=== PATIENT | female | born 1980 | race Caucasian/White ===

== ENCOUNTER → 2021-09-03 13:02 | Outpatient (CLI) | payer BC, SELFPAY ==
--- NOTE | ~2021-09-03 | US_ITS ---
EXAMINATION: US pelvic complete w TV DATE: 09/03/2021 14:10 INDICATION: Abnormal uterine bleeding Comparison:No prior studies for comparison. TECHNIQUE: Multiple transabdominal and endovaginal sonographic images of the pelvis performed. FINDINGS: The uterus measures 11.2 x 5.3 x 6.2 cm. There is an IUD in the endometrium. The endometria l complex measures 7 mm. The right ovary measures 2.5 x 1.5 x 1.8 cm and the left ovary measures 3 x 1.7 x 2.9 cm. There are small follicles in each ovary. Normal doppler signal in both ovaries. There is no free fluid in the pelvis. There are no abnormal masses seen on either side. IMPRESSION: 1. Mildly enlarged uterus. IUD in expected position in the endometrium. Reviewed, dictated and finalized at location A.
== END ==
PROVIDERS: PCP Obstetrics & Gynecology; Visit Provider Obstetrics & Gynecology
DX: N93.9 Abnormal uterine and vaginal bleeding, unspecified (principal); Z97.5 Presence of (intrauterine) contraceptive device; N85.2 Hypertrophy of uterus
CPT/HCPCS: 76830; 76856

== ENCOUNTER 2021-09-22 10:09 | Emergency (ER) | payer BC, SELFPAY ==
[2021-09-22] VITALS (9 sets, daily range): BP systolic 112–150; BP diastolic 63–100; PULSE 78–91; RESP 14–20; TEMP 37.1; O2SAT 95–100
[2021-09-22 10:25] LABS: Basophils Percent Auto 0.5 % (0.2-1.2); Eosinophils Absolute Auto 0.1 K/mm3 (0-0.3); Eosinophils Percent Auto 1.8 % (0-4.4); Hematocrit 35.8 % (37.0-47.0); Hemoglobin 12.4 g/dL (12.0-15.0); Immature Granulocyte Absolute 0.02 K/mm3 (0.00-0.031); Immature Granulocyte Percent A 0.3 % (0-0.5); Lymphocytes Absolute Auto 1.79 K/mm3 (0.9-3.2); Lymphocytes Percent Auto 24.4 % (18.3-44.2); Mean Corpuscular HGB Conc 34.6 g/dl (32-36); Mean Corpuscular Hemoglobin 34.3 pg (26-34); Mean Corpuscular Volume 99.2 fl (80-100); Mean Platelet Volume 9.5 fl (7.4-10.4); Monocytes Absolute Auto 0.5 K/mm3 (0.1-0.6); Monocytes Percent Auto 6.4 % (2.6-8.5); Neutrophils Absolute Auto 4.9 K/mm3 (1.3-6.7); Neutrophils Percent Auto 66.6 % (45.5-73.1); Platelet Count Result 224 k/mm3 (150-375); Red Blood Count 3.61 M/mm3 (4.2-5.4); Red Cell Distribution Width 11.5 % (11.5-14.5); White Blood Count 7.3 K/mm3 (4.5-10.0)
[2021-09-22 10:50] LABS: Beta HCG Quantitative < 2.39 mIU/ML
--- NOTE | 2021-09-22 12:42 | PC.NURSE ---
Pad that pt was given on arrival to room saturated.
[2021-09-22] MEDS: KETOROLAC 15 MG/ML VIAL (*BKC) IV PUSH (13:28)
[2021-09-22] MEDS: MORPHINE SULFATE (*CRX) 2 MG/ML INJ 1 MG IV PUSH (13:28)
[2021-09-22] MEDS: TRANEXAMIC ACID 1,000MG/ISO100 1,000 MG/100 ML BAG 200 MG IVPB (13:35)
--- NOTE | 2021-09-22 14:27 | PC.NURSE ---
Chux pad under pt being changed approx every 30 min. Losing grape sized clots.
--- NOTE | 2021-09-22 15:20 | ED.FEMALEGU ---
HPI - Female Genitourinary General Chief complaint: Vaginal Bleeding Stated complaint: Vaginal bleeding Time Seen by Provider: 09/22/21 11:13 Source: patient Mode of arrival: ambulatory Limitations: no limitations History of Present Illness HPI Narrative: 41-year-old female presents today with complaints of 4 days of vaginal bleeding. Patient with history of this issue and recently saw OB. Patient currently on Provera per her OB provider for this bleeding issue. Patient was told a few days ago to come into the ER. Patient states she is saturating a super tampon sometimes every 20 minutes. Patient really recently with an ultrasound showing Mirena in place and enlarged uterus. Patient has planned to have a hysterectomy in October. Related Data Home Medications Medication Instructions Recorded Confirmed levonorgestrel 20 mcg/24 hours (7 1 device intrauterine ONCE 08/29/21 09/04/21 yrs) 52 mg intrauterine device (Mirena) Allergies Allergy/AdvReac Type Severity Reaction Status Date / Time No Known Allergies Allergy Verified 09/22/21 12:25 Review of Systems Review of Systems: CONSTITUTIONAL: Denies fever, chills, or sweats. EYES: Denies visual changes, redness, or discharge. ENT: Denies rhinorrhea, congestion, sore throat, or otalgia. CARDIOVASCULAR: Denies chest pain, palpitations, or edema. RESPIRATORY: Denies cough or dyspnea. GASTROINTESTINAL: Denies abdominal pain, nausea, vomiting, or diarrhea. GENITOURINARY: Vaginal bleeding with pelvic cramping. Denies dysuria or hematuria. SKIN: Denies rash or itching. MUSCULOSKELETAL: Denies back pain, joint pain, or myalgia. NEUROLOGIC: Denies headache, numbness, dizziness, or weakness. PSYCHIATRIC: Denies anxiety or depression. [facility] Past Medical History Medical History Anxiety Dermoid cyst (~2017) Encounter for IUD insertion (12/08/20) Mirena insertion Gestational trophoblastic disease (~2005) History of chemotherapy (~2005) History of molar resulted in GTD History of PCOS Missed with demise before 20 completed weeks of gestation Surgical History Surgical History History of bladder suspension procedure History of cholecystectomy History of dilation and curettage (10/02/20) History of laparotomy (~1999) pcos/endometriosis History of ovarian cystectomy (~2017) dermoid cyst Family History Family History Mother Breast cancer Asthma Father Hypertension Chronic obstructive lung disease Heart disease Social History Social History Smoking status: Never smoker Alcohol intake: current Drinks per week: 3 Substance use: never Substance use type: does not use Additional living arrangements comments: 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 Gender identity (if verbalized by the patient): Female Sexual Orientation (if Verbalized by the Patient): Straight or Heterosexual Exam Const: General: healthy appearing, no acute distress and alert Nutritional Appearance: well nourished Orientation/consciousness: patient oriented x3 Limitations: no limitations HENMT: Head: normal to inspection Mouth: Yes Normal oral and palatal mucosa present Eyes: Conjunctivae: conjunctivae normal Pupils: Equal, round and reactive pupils present EOM: EOMs intact bilaterally Neck: Neck: normal visual inspection Chest: Chest palpation & inspection: normal inspection of the chest Resp: Effort & Inspection: normal respiratory effort Auscultation: clear to auscultation bilaterally Cardio: Rate: regular rate Rhythm: regular rhythm GI: GI Palp: Yes Soft to palpation and Yes Tenderness to palpation present (GI) Auscultation: normal bowel sounds : Speculum Exam - Vagina: normal appearance of the
[2021-09-22] MEDS: SODIUM CHLORIDE 0.9% IV 1,000 ML 999 ML IV CONT (15:37)
[2021-09-22 15:53] LABS: Hematocrit 32.3 % (37.0-47.0); Hemoglobin 11.1 g/dL (12.0-15.0)
--- NOTE | 2021-09-22 16:17 | PC.NURSE ---
c/o feeling lightheaded when up to the bathroom. also c/o increase in pain. vaginal bleeding decreased after medications.
[2021-09-22] MEDS: oxyCODONE/ACETAMINOPHEN (*CRX) 5-325 MG TABLET 1 TABLET PO (16:28)
== END 2021-09-22 18:07 | disposition home or self-care (01) ==
PROVIDERS: Emergency Medicine; Emergency Provider Nurse Practitioner Family; PCP Obstetrics & Gynecology
DX: N93.9 Abnormal uterine and vaginal bleeding, unspecified (principal); E28.2 Polycystic ovarian syndrome; Z92.21 Personal history of antineoplastic chemotherapy; F41.9 Anxiety disorder, unspecified; Z97.5 Presence of (intrauterine) contraceptive device
CPT/HCPCS: 36415; 84702; 85014; 85018; 85025; 85461; 96361; 96365; 96375; 99284; A9270; J1885; J2270; J7030

== ENCOUNTER 2021-09-28 12:52 | Outpatient (CLI) | payer BC, SELFPAY | END 2021-09-28 12:53 | disposition home or self-care (01) | LOC: ANHSURGERY 12:56 | PROVIDERS: Visit Provider Obstetrics & Gynecology | DX: N92.1 Excessive and frequent menstruation with irregular cycle (principal); Z01.818 Encounter for other preprocedural examination | CPT/HCPCS: 36415; 86850; 86900; 86901 ==

== ENCOUNTER 2021-10-05 04:10 | Day surgery (SDC) | payer BC, SELFPAY ==
[2021-09-27 10:16] VITALS: BMI 37.3
--- NOTE | 2021-09-27 10:31 | PC.NURSE ---
Report to the Outpatient Waiting Room, entrance under the green pavilion located off [facility], at time 7:00 on date 10/05/21. OR Time: 9:00. - You and your visitor will be asked a series of questions to screen for COVID 19 for your protection. - Only one visitor is allowed at this time. - The patient visitor is requested to leave or wait in car when not with patient. - A mask is required within the hospital. Patients may have clear liquids (water, carbonated beverages, clear teas, apple juice) until 3 hours prior to surgery (6:00) with a maximum of 20 ounces. - No food from midnight until time of surgery Take the following medications with a SIP of water the morning of surgery: ESCITALOPRAM, PAIN PILL (IF NEEDED) Medications to discontinue per physician: PROVERA AND TRANEXAMIC ACID Date to take last dose: 09/27/[address] DEWITT (PER PT) Please no make-up, nail kinyarwanda, hairspray, perfume, deodorant, or body powder the day of surgery. No jewelry (including any body piercings) or valuables the day of surgery, leave them at home. Please take a shower or bath the night before, or the morning of, surgery with an antibacterial soap. Wear comfortable, loose fitting clothing. - Jewelry must be removed prior to entering the operating room. Rings and piercings that are not removed may be cut off. - The hospital will not accept responsibility for valuables. - Please leave all valuables, including medications, at home the day of surgery. If you are going home after surgery, a licensed river driver must drive you home. - NO public transportation without another adult. - We recommend that an adult stay with you for 24 hours following discharge. - We also recommend that you do not drive, make important decision, drink alcoholic beverages, or take any drugs that were not prescribed by your health care provider for at least 24 hours after your discharge time. Follow any additional instructions given to you from your surgeon. If you or anyone in your household have experienced Covid symptoms in the past week, please notify your surgeon or the nurse liaison at the phone number below for possible testing. Telephone instructions given to PT - AVI CASTELLANOS and asked if any additional questions and then verbalized understanding. Patient advised to call surgeon office or pre surgery nurse liaison [phone] if any additional questions.
[2021-10-05] VITALS (13 sets, daily range): BP systolic 104–120; BP diastolic 55–91; PULSE 62–92; RESP 12–20; TEMP 36.9–37.2; O2SAT 92–100
--- NOTE | 2021-10-05 07:13 | WPDANESEPPF ---
Anes - Initial Pre Proc Eval Procedure: Operation Date: 10/05/21 09:00 Proposed Procedures p Robotic Assisted Laparoscopic Hysterectomy with Bilateral Salpingectomy, - Rosy Nguyen MD s Cystoscopy - Rosy Nguyen MD Date/Time: 10/05/21 07:13 Surgeon: Rosy Nguyen MD Pre Op Diagnosis: uterine hypertrophy Patient Data Age: 41 Gender: F Height: 1.57 m Weight: 92.53 kg Allergies Allergy/AdvReac Type Severity Reaction Status Date / Time No Known Allergies Allergy Verified 10/05/21 07:16 Home Medications Medication Instructions Recorded Confirmed Type levonorgestrel 20 mcg/24 hours (7 1 device intrauterine ONCE 08/29/21 09/27/21 History yrs) 52 mg intrauterine device (Mirena) oxycodone-acetaminophen 5 mg-325 1 tablet PO Q6H PRN pain #12 tabs 09/22/21 10/05/21 Rx mg tablet escitalopram oxalate 20 mg tablet 20 mg PO HS 10/05/21 10/05/21 History Patient hx anesthesia problems: post op nausea/vomiting Family hx anesthesia problems: none Results Review: All pre-operative results and documents have been reviewed as part of the pre-operative evaluation. [facility] Past Medical History Medical History (Updated 10/05/21 @ 07:13 by Nahid Staley DO) Anxiety Asthma undiagnosed Dermoid cyst (~2017) Encounter for IUD insertion (12/08/20) Mirena insertion Gestational trophoblastic disease (~2005) History of chemotherapy (~2005) History of molar resulted in GTD History of PCOS Missed with demise before 20 completed weeks of gestation Surgical History Surgical History History of bladder suspension procedure History of cholecystectomy History of dilation and curettage (10/02/20) History of laparotomy (~1999) pcos/endometriosis History of ovarian cystectomy (~2017) dermoid cyst Family History Family History Mother Breast cancer Asthma Father Hypertension Chronic obstructive lung disease Heart disease Social History Social History Smoking status: Never smoker Alcohol intake: current Drinks per week: 2 Substance use: current Substance use type: marijuana Living arrangements: with family Additional living arrangements comments: CHILDREN 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 Gender identity (if verbalized by the patient): Female Sexual Orientation (if Verbalized by the Patient): Straight or Heterosexual Spiritual care concerns: No Anes - Eval Final PreProcedure Day of Procedure 10/05/21 07:13 Patient weight: obese Heart: regular rate and rhythm Lungs: clear to auscultation Airway: Mallampati scale class II Neurological: alert and oriented Last oral intake: >/= 8 hours ASA classification: II Emergent: no Anesthetic plan: proceed Anesthesia type and monitoring: general ETT and standard monitoring Results Review: All pre-operative results and documents have been reviewed as part of the pre-operative evaluation. Informed Consent: The patient's anesthetic plan and its attendant risks and benefits were discussed with the patient/family/POA. Questions were solicited and answers provided to the satisfaction of the patient/family/POA.
[2021-10-05] MEDS: LACTATED RINGERS 1,000 ML 30 ML IV CONT (07:36)
[2021-10-05] MEDS: ACETAMINOPHEN 500 MG TABLET 1000 MG PO ×2 (07:36→20:55)
[2021-10-05] MEDS: KETOROLAC 15 MG/ML VIAL (*BKC) IV PUSH (07:39)
[2021-10-05] MEDS: SCOPOLAMINE 1.5 MG PATCH TRANSDERM (07:39)
--- NOTE | 2021-10-05 08:24 | PM.IMHP ---
H&P: HPI History of Present Illness Date/Time: 10/05/21 08:24 Chief Complaint: abnormal uterine bleeding Narrative: Ian is a 41yo [id number] who presents with AUB and to proceed with scheduled hysterectomy. She has significant AUB and was recently seen in the ER. She reports having significant bleeding; clots the size of golf balls and passed 3 about the size of her palm. She has been taking the Provera but unsure if it's helping much. She went to the ER where heavy bleeding was noted. CBC was normal. But due to the heavy bleeding, TXA was given. She has a mirena IUD in place since 12/08/20, on her last clinic visit though, no strings were noted and concerning for IUD expulsion. She reports that she has none stop bleeding. 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 She reports she has been having significant cramping and back pains with the bleeding. She is not currently sexually active. She would liek to proceed with hysterectomy. No symptoms of anemia. Review of Systems Review of Systems: All systems reviewed & are unremarkable except as noted in HPI and below (HPI) PMFSH Past Medical History Medical History Anxiety Asthma undiagnosed Dermoid cyst (~2017) Encounter for IUD insertion (12/08/20) Mirena insertion Gestational trophoblastic disease (~2005) History of chemotherapy (~2005) History of molar resulted in GTD History of PCOS Missed with demise before 20 completed weeks of gestation Surgical History Surgical History History of bladder suspension procedure History of cholecystectomy History of dilation and curettage (10/02/20) History of laparotomy (~1999) pcos/endometriosis History of ovarian cystectomy (~2017) dermoid cyst Family History Family History Mother Breast cancer Asthma Father Hypertension Chronic obstructive lung disease Heart disease Social History Social History Smoking status: Never smoker Alcohol intake: current Drinks per week: 2 Substance use: current Substance use type: marijuana Living arrangements: with family Additional living arrangements comments: CHILDREN 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 Gender identity (if verbalized by the patient): Female Sexual Orientation (if Verbalized by the Patient): Straight or Heterosexual Spiritual care concerns: No Meds Home Medications and Allergies Home Medications Medication Instructions Recorded Confirmed Type levonorgestrel 20 mcg/24 hours (7 1 device intrauterine ONCE 08/29/21 09/27/21 History yrs) 52 mg intrauterine device (Mirena) oxycodone-acetaminophen 5 mg-325 1 tablet PO Q6H PRN pain #12 tabs 09/22/21 10/05/21 Rx mg tablet escitalopram oxalate 20 mg tablet 20 mg PO HS 10/05/21 10/05/21 History Allergies Allergy/AdvReac Type Severity Reaction Status Date / Time No Known Allergies Allergy Verified 10/05/21 07:16 Vital Signs Vital Signs - 24 hr 10/05/21 07:43 Temperature 98.9 F Pulse Rate 80 Respiratory Rate 16 Blood Pressure 120/73 Pulse Oximetry 100 Oxygen Delivery Room Air Exam Const: General: cooperative, healthy appearing, comfortable and no acute distress Resp: Effort & Inspection: normal respiratory effort Cardio: Rate: regular rate GI: Inspection: normal to inspection and non-distended GI Palp: Yes Soft to palpation : Other: deferred to OR Skin: General skin exam: normal color Neuro: General: patient oriented x3 Extrem: General: normal to inspection Psych: Appearance: grossly normal Affect: normal affect Attitude: cooperative Assessment and Plan Assessment and plan (1) Menometrorrhagia: Code(s): N92.1 - Excessive and vee
--- NOTE | 2021-10-05 08:29 | WPDHPUPDATE1 ---
History and Physical Update Update Date/Time: 10/05/21 08:29 History and Physical has been reviewed, including an updated exam of the patient. There are NO changes in the patient's condition. Risks, benefits, and alternatives have been discussed and questions answered. Patient agrees to proceed with procedure.
[2021-10-05] MEDS: ceFAZolin 2 GM/D5W 50 ML 2 GM/50 ML BAG IVPB (09:06)
[2021-10-05] MEDS: LIDO 1%/EPINEPHRINE/PF 1:200,000 30 ML VIAL 21 ML XX (10:44)
--- NOTE | 2021-10-05 10:48 | W.PM.PROC2 ---
Procedure Note - Detailed Date of Procedure 10/05/21 Pre-op Diagnosis AUB Enlarged uterus Post-op Diagnosis Same Procedure Performed Robotic assisted laparoscopic hysterectomy, bilateral salpingectomy, and cystoscopy Surgeon Rosy Nguyen MD Anesthesia General Indications Ian is a 41yo [id number] who has severe AUB and an enlarged uterus that has failed medical management; including expelling a Mirena IUD. Pap smear and EMB were previously normal. Findings Uterus 10.5cm, normal cervix, normal bilateral fallopian tubes and ovaries. Normal bladder without defect, bilateral ureteral efflux noted. Good hemostasis at end of case. Description of Procedure Ian was taken to the operating room where she was placed under general anesthesia without issues. She received 2 g Ancef.? She was then prepped and draped in the usual sterile fashion? in the dorsal lithotomy position with her legs in low Brendan stirrups and her arms tucked at her side.? A time-out was performed.? My attention was turned down below where a montemayor catheter was placed. A bivalve speculum was placed within the vagina. The cervix was easily identified and the anterior lip of the cervix was grasped with single-tooth tenaculum.? The uterus was then sounded to 10.5cm.? The cervix was serially dilated to allow for the ADONIS uterine manipulator; which was placed w/o issue (8cm tip with 3cm cervical ring).? My gloves were changed and attention was then turned to the abdomen. A supraumbilical incision was made, and a 5 mm trocar was placed under direct visualization.? Once intra-abdominal placement was confirmed, the abdomen was insufflated with carbon dioxide gas.? An abdominal survey was performed and the above findings were noted.? Two additional ports were placed on the right side and one port on the left side under direct visualization without issues.?The umbilical port was switched out for a robotic port under direct visualization. The patient was then placed in deep Trendelenburg, with the legs slightly lowered.??The robot was then docked. The instruments were placed intra-abdominally under direct visualization.? I then un-scrubbed and went to the robotic console. I then started my hysterectomy on the right side. The ureter was easily identified transperitoneally and well out of the surgical field. The fallopian tube was elevated and the mesosalpinx was coagulated and transected.? The round ligament was clamped, coagulated, and transected. The uterine ovarian artery was then serially clamped, coagulated, and transected with good hemostasis. The broad ligament was then dissected anteriorly and posteriorly skeletonizing the uterine artery.? The bladder flap was then developed on the right side and carried around the left, anteriorly.? The uterine artery was then serially clamped and coagulated.? Once the vessel was adequately coagulated, it was then transected with good hemostasis. The same procedure was then performed on the left side without complications. ? The uterus was noted to be devascularized.? The bladder flap was verified out of the surgical field and the colpotomy was started anteriorly and continued in a clockwise fashion until the uterus was released.? The uterus was removed from the abdomen via the vagina without complications.? The vaginal cuff had small bleeders that were made hemostatic without complications.? The vaginal cuff was then reapproximated using a 0 V lock suture. The pelvis was then irrigated and suctioned free of all clots and debris.? Good hemostasis was noted. All instruments were removed from the abdomen and the robot was undocked.? I then scrubbed back in and verified that the cuff was intact without any defects.? The Montemayor catheter was then removed.? The cystoscope was placed within the bladder, which filled without difficulty.? Bilateral ureteral efflux was noted.? The bladder was examined and no defects or abnormalities were visualized.? The bladder was drained.? The cystoscope
[2021-10-05] MEDS: fentaNYL CITRATE INJ (*CRX) 100 MCG/2 ML VIAL 25 MCG IV PUSH ×5 (11:06→11:45)
[2021-10-05] MEDS: ONDANSETRON INJ 4 MG/2 ML VIAL IV PUSH ×2 (11:07→15:41)
[2021-10-05] MEDS: HYDROmorphone HCL INJ (*CRX) 1 MG/ML SYR 0.5 MG IV PUSH ×4 (12:20→21:16)
[2021-10-05] MEDS: KETOROLAC 30 MG/ML VIAL (*BKC) IV PUSH ×2 (13:06→18:43)
[2021-10-05] MEDS: LACTATED RINGERS 1,000 ML 100 ML IV CONT ×2 (13:06→20:55)
[2021-10-05] MEDS: oxyCODONE HCL (*CRX) 5 MG TAB IR PO ×2 (13:12→14:09)
--- NOTE | 2021-10-05 14:41 | OBPPTRN ---
1245 Patient transferred to post room #289 per stretcher. Support person present. Oriented to unit, room, information board, admission packet and security measures. Patient verbalizes understanding.
[2021-10-05] MEDS: oxyCODONE HCL (*CRX) 5 MG TAB IR 10 MG PO (19:34)
[2021-10-05] MEDS: SIMETHICONE 80 MG TAB.CHEW PO (19:36)
[2021-10-05] MEDS: DOCUSATE SODIUM 100 MG CAPSULE PO (20:54)
[2021-10-05] MEDS: ESCITALOPRAM OXALATE 10 MG TABLET 20 MG PO (21:16)
[2021-10-06 00:05] VITALS: BP 110/68; PULSE 78; RESP 16; TEMP 37.1; O2SAT 94
[2021-10-06] MEDS: oxyCODONE HCL (*CRX) 5 MG TAB IR 10 MG PO ×2 (00:09→07:43)
[2021-10-06] MEDS: diphenhydrAMINE HCl INJ 50 MG/ML VIAL (00:30)
[2021-10-06 04:20] VITALS: BP 108/71; PULSE 80; RESP 16; TEMP 37.1; O2SAT 94
[2021-10-06] MEDS: IBUPROFEN 600 MG TABLET PO (04:22)
[2021-10-06] MEDS: ACETAMINOPHEN 500 MG TABLET 1000 MG PO (04:23)
[2021-10-06 05:16] LABS: Basophils Percent Auto 0.3 % (0.2-1.2); Hematocrit 27.4 % (37.0-47.0); Hemoglobin 8.9 g/dL (12.0-15.0); Immature Granulocyte Absolute 0.03 K/mm3 (0.00-0.031); Immature Granulocyte Percent A 0.4 % (0-0.5); Lymphocytes Absolute Auto 1.64 K/mm3 (0.9-3.2); Mean Corpuscular HGB Conc 32.5 g/dl (32-36); Mean Corpuscular Hemoglobin 33.6 pg (26-34); Mean Corpuscular Volume 103.4 fl (80-100); Mean Platelet Volume 9.3 fl (7.4-10.4); Monocytes Absolute Auto 0.6 K/mm3 (0.1-0.6); Monocytes Percent Auto 7.9 % (2.6-8.5); Neutrophils Absolute Auto 5.2 K/mm3 (1.3-6.7); Neutrophils Percent Auto 69.4 % (45.5-73.1); Platelet Count Result 265 k/mm3 (150-375); Red Blood Count 2.65 M/mm3 (4.2-5.4); Red Cell Distribution Width 12.6 % (11.5-14.5); White Blood Count 7.5 K/mm3 (4.5-10.0)
[2021-10-06 05:25] LABS: Anion Gap 3 mmol/L (8-16); Blood Urea Nitrogen 8 mg/dL (7-17); Calcium 8.2 mg/dL (8.4-10.2); Carbon Dioxide 28 mmol/L (22-30); Chloride 104 mmol/L (98-107); Estimated CRCL calculation 83 ml/min; Estimated Glomerular Filt Rate > 60; Glucose 95 mg/dL (65-110); Potassium 3.5 mmol/L (3.4-5.0); Sodium 135 mmol/L (137-145)
[2021-10-06] MEDS: SIMETHICONE 80 MG TAB.CHEW PO (07:43)
[2021-10-06] MEDS: DOCUSATE SODIUM 100 MG CAPSULE PO (07:43)
[2021-10-06 09:25] VITALS: BP 110/67; PULSE 69; RESP 18; TEMP 36.5; O2SAT 98
== END 2021-10-06 10:03 | disposition home or self-care (01) ==
LOC: ANHSURGERY 10:47 → ANHOB2 13:36 → ANHSURGERY 10-12 18:01
PROVIDERS: Visit Provider Obstetrics & Gynecology
PROC: (CPT 58571; principal; 2021-10-05 09:00)
PROC: 0TJB8ZZ Inspection of Bladder, Via Natural or Artificial Opening Endoscopic (ICD-10-PCS; CPT 52000; 2021-10-05 09:00)
DX: N92.1 Excessive and frequent menstruation with irregular cycle (principal); N80.0 Endometriosis of uterus; F12.90 Cannabis use, unspecified, uncomplicated; F41.9 Anxiety disorder, unspecified; J45.909 Unspecified asthma, uncomplicated
CPT/HCPCS: 58571; S2900; 36415; 80048; 85025; 88307; 99199; A9270; J0690; J1100; J1170; J1200; J1885; J2250; J2405; J2704; J2710; J3010; J7030; J7120

== ENCOUNTER 2021-10-24 15:01 | Outpatient (CLI) | payer BC, SELFPAY ==
[2021-10-24 15:22] LABS: Basophils Absolute Auto 0.1 K/mm3 (0.0-0.1); Basophils Percent Auto 0.9 % (0.2-1.2); Eosinophils Absolute Auto 0.5 K/mm3 (0-0.3); Eosinophils Percent Auto 6.5 % (0-4.4); Hematocrit 33.2 % (37.0-47.0); Hemoglobin 10.5 g/dL (12.0-15.0); Immature Granulocyte Absolute 0.05 K/mm3 (0.00-0.031); Immature Granulocyte Percent A 0.6 % (0-0.5); Lymphocytes Absolute Auto 1.95 K/mm3 (0.9-3.2); Lymphocytes Percent Auto 24.8 % (18.3-44.2); Mean Corpuscular HGB Conc 31.6 g/dl (32-36); Mean Corpuscular Hemoglobin 30.8 pg (26-34); Mean Corpuscular Volume 97.4 fl (80-100); Mean Platelet Volume 9.5 fl (7.4-10.4); Monocytes Absolute Auto 0.7 K/mm3 (0.1-0.6); Monocytes Percent Auto 8.5 % (2.6-8.5); Neutrophils Absolute Auto 4.6 K/mm3 (1.3-6.7); Neutrophils Percent Auto 58.7 % (45.5-73.1); Platelet Count Result 389 k/mm3 (150-375); Red Blood Count 3.41 M/mm3 (4.2-5.4); Red Cell Distribution Width 11.8 % (11.5-14.5); White Blood Count 7.9 K/mm3 (4.5-10.0)
[2021-10-24 15:26] LABS: Appearance Urine Clear (Clear); Bilirubin Urine Negative (Negative); Blood Urine 3+ (Negative); Color Urine Yellow (Yellow); Glucose Urine UA Negative (Negative); Ketones Urine Negative (Negative); Leukocyte Esterase Ur 3+ LEU/UL (NEGATIVE); Nitrate Urine Negative (Negative); Protein Urine 1+ mg/dL (Negative); Urobilinogen Urine 0.2 mg/dL (<2.0); pH Urine 7.5 (5.0-9.0)
[2021-10-24 15:32] LABS: Mucus Urine Rare /lpf; Squamous Epithelial Cell Urine Many /hpf (Few); WBC Urine >75 /hpf (0-3)
[2021-10-24 15:33] LABS: Add Urine Microscopic? YES
== END 2021-10-24 15:02 | disposition home or self-care (01) ==
LOC: ANHLAB 15:03
PROVIDERS: Visit Provider Obstetrics & Gynecology
DX: Z90.710 Acquired absence of both cervix and uterus (principal); R10.2 Pelvic and perineal pain
CPT/HCPCS: 36415; 81001; 85025; 87086; 87088

== ENCOUNTER 2023-06-01 04:40 | Emergency (ER) | payer OTHER, BC, SELFPAY ==
--- NOTE | ~2023-06-01 | XR_ITS ---
EXAMINATION: XR shoulder LT min 2V DATE: 06/01/2023 07:37 INDICATION: Left shoulder pain. TECHNIQUE: 4 views of left shoulder were obtained. COMPARISON: None. FINDINGS: Bone alignment is normal. No fracture. Glenohumeral joint is normal. There is mild acromioc lavicular joint osteoarthritis. There is a 3 mm loose body in the glenohumeral joint. IMPRESSION: 1. Small loose body in glenohumeral joint. 2. Mild acromioclavicular joint osteoarthritis. Reviewed, dictated and finalized at location A. [employer]ICIAN [employer]
[2023-06-01 04:45] VITALS: BP 114/99; PULSE 97; RESP 18; TEMP 36.8; O2SAT 96
[2023-06-01] MEDS: ONDANSETRON INJ 4 MG/2 ML VIAL IV PUSH (07:48)
[2023-06-01] MEDS: diazePAM INJ (*CRX) 10 MG/2 ML SYRINGE 5 MG IV PUSH (07:49)
[2023-06-01] MEDS: KETOROLAC 30 MG/ML VIAL (*BKC) IV PUSH (07:49)
[2023-06-01] MEDS: SODIUM CHLORIDE 0.9% IV 1,000 ML 999 ML IV CONT (07:50)
[2023-06-01] MEDS: HYDROcodone/acetaminophen (*CRX) 5-325 MG TABLET 1 TAB PO (08:53)
--- NOTE | 2023-06-01 09:39 | ED.UPPEXIN ---
HPI - Extremity Injury (Upper) General Chief Complaint: Extremity Injury, Upper Stated Complaint: left frozen shoulder Time Seen by Provider: 06/01/23 06:57 History of Present Illness HPI narrative: patient is a 43-year-old female who presents ER with left shoulder pain. Worsening over last several months. Diagnosed with frozen shoulder by her Ob and has schedule appointment with a chiropractic sports medicine doctor. She has been taking anti-inflammatories and is not improving. She can no longer move her arm without having severe pain and she is having trouble sleeping. No chest pain or chest pressure. No exertional symptoms. She also reports that she has a burning sensation to her left shoulder Related Data Allergies Allergy/AdvReac Type Severity Reaction Status Date / Time No Known Allergies Allergy Verified 05/30/23 08:46 Review of Systems Cardiovascular: Cardiovascular: Reports no additional cardiovascular complaints Respiratory: Respiratory: Reports no additional respiratory complaints Musculoskeletal: Musculoskeletal: Reports arthralgias, Denies joint swelling and Reports muscle cramps Neurologic: Reports system reviewed and no additional complaints, except as documented PMFSH Past Medical History Medical History (Updated 06/01/23 @ 09:42 by Leandro Londono MD) Anxiety Asthma undiagnosed Dermoid cyst (~2017) Encounter for IUD insertion (12/08/20) Mirena insertion Gestational trophoblastic disease (~2005) History of chemotherapy (~2005) History of molar resulted in GTD History of PCOS Missed with demise before 20 completed weeks of gestation Surgical History Surgical History History of bladder suspension procedure History of breast lift History of cholecystectomy History of dilation and curettage (10/02/20) History of laparotomy (~1999) pcos/endometriosis History of ovarian cystectomy (~2017) dermoid cyst S/P abdominoplasty S/P laparoscopic hysterectomy 10/05/2021 Family History Family History Mother Breast cancer Asthma Father Hypertension Chronic obstructive lung disease Heart disease Social History Social History (Updated 05/30/23 @ 08:49 by Rebecca Albarran MA) Smoking status: Unknown if ever smoked Alcohol intake: current Substance use: never Substance use type: does not use Current Housing: Decline to Answer Concerned About Future Housing: Decline to Answer Difficulty Paying Gas/Electric Bills: Decline to Answer Difficulty Paying for Meds: Decline to Answer Currently Unemployed: Decline to Answer Education: Don't Know Difficulty w/ Childcare or Family Care: Decline to Answer Living arrangements: with family Occupation/Education: occupation 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 HEAD: Normocephalic, atraumatic. ENT: Mucous membranes moist. CHEST: Clear to auscultation. No respiratory distress. HEART: Regular rate and rhythm. Normal peripheral pulses. EXTREMITIES: left shoulder exam reveals normal external rotation but cannot perform internal rotation or forward flexion / extension without significant pain. She will also not perform abduction due to pain at the shoulder. There is no swelling of the joint but she has tenderness over the AC joint. Additionally she has tenderness over the muscles of the shoulder girdle and left paraspinal musculature. SKIN: Warm, dry, no rash. NEURO: Alert and oriented x3. PSYCH: Normal mood and affect. Course Course Emergency Course: Suspect combination frozen shoulder muscle strain/ spasm. Patient will benefit from immobilization as well
[2023-06-01 10:05] VITALS: BP 110/78; PULSE 78; RESP 16; O2SAT 100
== END 2023-06-01 10:05 | disposition home or self-care (01) ==
PROVIDERS: Emergency Provider Emergency Medicine; PCP Family Medicine
DX: M75.02 Adhesive capsulitis of left shoulder (principal); M19.012 Primary osteoarthritis, left shoulder; E28.2 Polycystic ovarian syndrome; Z90.49 Acquired absence of other specified parts of digestive tract; Z90.710 Acquired absence of both cervix and uterus
CPT/HCPCS: 73030; 96361; 96374; 96375; 99284; A9270; J1885; J2405; J3360; J7030